=== PATIENT | male | born 1970 | race Asian ===

== ENCOUNTER 2019-10-09 16:22 | Emergency (ER) | payer MEDICAID, MEDICARE ==
[~2019-10-09] VITALS: Ht 175.3 cm; Wt 116.0 kg
[2019-10-09] MEDS ORDERED: SODIUM CHLORIDE 0.9% 1000ML BAG (SEPSIS BOLUS) IV ONE (17:00)
[2019-10-09] MEDS ORDERED: VANCOMYCIN 1 G PREMIX 200 ML IV ONE (17:00)
[2019-10-09] MEDS ORDERED: PIPERACILLIN/TAZ 3.375G PREMIX 50 ML IV ONE (17:00)
[2019-10-09 18:35] LABS: BASOPHILS % 0.3 % (0.0-2.0); EOSINOPHILS % 0.4 % (0.0-5.0); HEMATOCRIT. 44.3 % (42.0-52.0); HEMOGLOBIN. 14.8 g/dL (14.0-18.0); LYMPHOCYTES % 9.9 % (20.0-50.0); MEAN CORPUSCULAR HEMOGLOBIN 31.2 pg (28.0-32.0); MEAN CORPUSCULAR VOLUME 93.5 fL (80.0-94.0); MEAN PLATELET VOLUME 8.4 fl (7.4-10.4); MONOCYTES % 6.6 % (2.0-8.0); NEUTROPHILS % 82.8 % (40.0-76.0); PLATELET 297 x1000/uL (130-400); RED BLOOD CELL COUNT 4.75 mill/uL (4.7-6.1); RED CELL DISTRIBUTION WIDTH 13.9 % (11.6-14.6)
[2019-10-09 18:42] LABS: CHLORIDE 103 mEq/L (98-107); PROTHROMBIN TIME 9.9 sec (9.6-11.0)
[2019-10-09] MEDS ORDERED: KETOROLAC 30MG/ML VIAL IV ONE (20:15)
[2019-10-09] MEDS ORDERED: HYDROCODONE/ACETAMINOPHEN 5/325MG TABLET PO ONE (20:15)
[2019-10-09] MEDS ORDERED: LORAZEPAM 2MG/ML CPJ IV ONE (20:45)
[2019-10-09 21:20] VITALS: BP 148/81
== END 2019-10-10 00:48 | disposition left against medical advice (07) ==
LOC: ER 16:22 → CANBEDREQ 21:00 → ER 10-10 00:48
DX: L03.115 Cellulitis of right lower limb (principal); A41.9 Sepsis, unspecified organism; F17.290 Nicotine dependence, other tobacco product, uncomplicated; F12.10 Cannabis abuse, uncomplicated; Z98.890 Other specified postprocedural states
CPT/HCPCS: 36415; 71045; 80053; 83605; 84145; 84484; 85025; 85610; 87040; 93005; 96365; 96367; 99291; J2543; J3370; J7030

== ENCOUNTER 2022-05-13 15:41 | Inpatient (IN) | payer MEDICAID, MEDICARE ==
[~2022-05-13] VITALS: Ht 190.5 cm; Wt 137.1 kg
[2022-05-13] MEDS ORDERED: SODIUM CHLORIDE 0.9% 1,000 ML IV ONE ×2 (16:00→16:45)
[2022-05-13 16:23] LABS: BASOPHILS % 0.5 % (0.0-2.0); EOSINOPHILS % 0.2 % (0.0-5.0); HEMATOCRIT. 25.5 % (42.0-52.0); HEMOGLOBIN. 8.3 g/dL (14.0-18.0); LYMPHOCYTES % 16.9 % (20.0-50.0); MEAN CORPUSCULAR HEMOGLOBIN 31.9 pg (28.0-32.0); MEAN CORPUSCULAR VOLUME 97.7 fL (80.0-94.0); MEAN PLATELET VOLUME 7.2 fl (7.4-10.4); NEUTROPHILS % 77.4 % (40.0-76.0); PLATELET 937 x1000/uL (130-400); RED BLOOD CELL COUNT 2.61 mill/uL (4.7-6.1); RED CELL DISTRIBUTION WIDTH 16.1 % (11.6-14.6)
[2022-05-13 16:25] LABS: PARTIAL THROMBOPLASTIN TIME < 21.0 sec (23.4-31.0)
[2022-05-13 16:39] LABS: CHLORIDE 101 mEq/L (98-107)
[2022-05-13] MEDS ORDERED: SODIUM CHLORIDE 0.9% 1000ML BAG (SEPSIS BOLUS) IV NR (17:00)
[2022-05-13] MEDS ORDERED: PIPERACILLIN/TAZ 3.375G PREMIX 50 ML IV NR (17:00)
[2022-05-13] MEDS: VANCOMYCIN 1GM PMX (XELLIA) 200 ML IV NR (18:15)
[2022-05-13 18:57] LABS: CLARITY URINE CLEAR (CLEAR); COLOR URINE YELLOW (YELLOW); KETONES URINE NEGATIVE (NEGATIVE); LEUKOCYTE ESTERASE URINE NEGATIVE (NEGATIVE); NITRITE URINE NEGATIVE (NEGATIVE); OCCULT BLOOD URINE NEGATIVE (NEGATIVE); PROTEIN URINE NEGATIVE (NEGATIVE); SPECIFIC GRAVITY URINE 1.021 (1.005-1.030); UROBILINOGEN URINE 0.2 E.U./dL (0.2-1.0)
[2022-05-13] MEDS ORDERED: IOHEXOL-300 100 ML BOTTLE ONE (18:57)
[2022-05-13 19:12] LABS: ETHANOL BLOOD < 10 mg/dL
[2022-05-13 19:39] LABS: *AMPHETAMINES SCREEN URINE NEGATIVE (NEGATIVE); *BARBITURATES SCREEN URINE NEGATIVE (NEGATIVE); *BENZODIAZEPINES SCREEN URINE NEGATIVE (NEGATIVE); *COCAINE SCREEN URINE NEGATIVE (NEGATIVE); CANNABINOID URINE SCREEN NEGATIVE (NEGATIVE); METHADONE URINE SCREEN NEGATIVE (NEGATIVE); OPIATES URINE SCREEN NEGATIVE (NEGATIVE); PHENCYCLIDINE URINE SCREEN NEGATIVE (NEGATIVE)
[2022-05-13 23:09] VITALS: BP 93/67
[2022-05-14] VITALS (20 sets, daily range): BP systolic 93–152; BP diastolic 64–85
[2022-05-14] MEDS ORDERED: MORPHINE SULFATE 2 MG/ML CPJ (NOT FOR IM USE) IV PRN (02:45)
[2022-05-14] MEDS ORDERED: VANCOMYCIN 1GM PMX (XELLIA) 200 ML IV SCH (03:30)
[2022-05-14] MEDS: DEXT 5%/0.45% NACL 1000ML 1,000 ML IV SCH ×2 (03:32→22:45)
[2022-05-14] MEDS ORDERED: DOXY100T2 PO (05:49)
[2022-05-14] MEDS ORDERED: ACET-2708 PO (05:49)
[2022-05-14] MEDS ORDERED: CEPH500T PO (05:49)
[2022-05-14] MEDS ORDERED: PIPERACILLIN/TAZOBACTAM 3.375GM/50ML PREMIX IV SCH (06:00)
[2022-05-14] MEDS ORDERED: *PATIENT'S OWN MEDICATION STORAGE XX SCH (06:00)
[2022-05-14 06:57] LABS: BASOPHILS % 0.7 % (0.0-2.0); EOSINOPHILS % 0.1 % (0.0-5.0); LYMPHOCYTES % 13.9 % (20.0-50.0); MEAN CORPUSCULAR HEMOGLOBIN 32.3 pg (28.0-32.0); MEAN CORPUSCULAR VOLUME 96.8 fL (80.0-94.0); MEAN PLATELET VOLUME 7.2 fl (7.4-10.4); MONOCYTES % 7.1 % (2.0-8.0); NEUTROPHILS % 78.2 % (40.0-76.0); PLATELET 613 x1000/uL (130-400); RED BLOOD CELL COUNT 1.93 mill/uL (4.7-6.1); RED CELL DISTRIBUTION WIDTH 15.9 % (11.6-14.6)
[2022-05-14] MEDS: PIPERACILLIN/TAZOBACTAM 3.375G in DEXT 5% WATER 50ML IV SCH ×3 (06:57→21:19)
[2022-05-14 07:19] LABS: CHLORIDE 112 mEq/L (98-107)
[2022-05-14 07:54] LABS: HEMATOCRIT. 18.7 % (42.0-52.0); HEMOGLOBIN. 6.2 g/dL (14.0-18.0)
[2022-05-14] MEDS ORDERED: ENOXAPARIN 40MG/0.4ML SYR SUBCUT SCH (09:00)
[2022-05-14] MEDS ORDERED: PANTOPRAZOLE SODIUM 40 MG/VIAL IV SCH (09:00)
[2022-05-14] MEDS ORDERED: NALOXONE HCL 0.4MG/ML VIAL IV PRN (10:00)
[2022-05-14] MEDS: VANCOMYCIN 1250MG in DEXTROSE 5% WATER 250ML IV SCH ×2 (16:17→22:00)
[2022-05-14 16:31] LABS: TOTAL IRON BINDING CAPACITY 248 ug/dL (250-450)
[2022-05-14 17:30] LABS: HEMATOCRIT 20.9 % (42.0-52.0); HEMOGLOBIN 6.8 g/dL (14.0-18.0)
[2022-05-14] MEDS: PANTOPRAZOLE SODIUM 40 MG/VIAL IV SCH (21:19)
[2022-05-14] MEDS: VANCOMYCIN 1GM PMX (XELLIA) 200 ML IV NR (21:20)
[2022-05-15] VITALS (16 sets, daily range): BP systolic 99–155; BP diastolic 44–84
[2022-05-15 02:09] LABS: HEMATOCRIT 22.2 % (42.0-52.0); HEMOGLOBIN 7.4 g/dL (14.0-18.0)
[2022-05-15] MEDS: PIPERACILLIN/TAZOBACTAM 3.375G in DEXT 5% WATER 50ML IV SCH ×3 (05:52→21:41)
[2022-05-15] MEDS: VANCOMYCIN 1250MG in DEXTROSE 5% WATER 250ML IV SCH ×3 (05:59→21:41)
[2022-05-15 07:17] LABS: BASOPHILS % 0.5 % (0.0-2.0); EOSINOPHILS % 0.3 % (0.0-5.0); LYMPHOCYTES % 11.7 % (20.0-50.0); MEAN CORPUSCULAR HEMOGLOBIN 31.7 pg (28.0-32.0); MEAN CORPUSCULAR VOLUME 94.1 fL (80.0-94.0); MONOCYTES % 6.6 % (2.0-8.0); NEUTROPHILS % 80.9 % (40.0-76.0); PLATELET 496 x1000/uL (130-400); RED BLOOD CELL COUNT 2.14 mill/uL (4.7-6.1); RED CELL DISTRIBUTION WIDTH 15.5 % (11.6-14.6)
[2022-05-15 07:55] LABS: CHLORIDE 109 mEq/L (98-107); VANCOMYCIN TROUGH 26.1 ug/mL (5.0-10.0)
[2022-05-15 08:08] LABS: HEMOGLOBIN. 6.8 g/dL (14.0-18.0)
[2022-05-15 08:09] LABS: HEMATOCRIT. 20.1 % (42.0-52.0)
[2022-05-15] MEDS: PANTOPRAZOLE SODIUM 40 MG/VIAL IV SCH ×2 (08:52→21:41)
[2022-05-15] MEDS: DEXT 5%/0.45% NACL 1000ML 1,000 ML IV SCH ×2 (08:53→18:01)
[2022-05-15 17:14] LABS: HEMATOCRIT 22.1 % (42.0-52.0); HEMOGLOBIN 7.4 g/dL (14.0-18.0)
[2022-05-15] MEDS: FERROUS SULFATE 325MG TABLET PO SCH (17:15)
[2022-05-15] MEDS: ASCORBIC ACID 500 MG TABLET PO SCH (17:15)
[2022-05-15 21:02] LABS: HEMATOCRIT 23.7 % (42.0-52.0); HEMOGLOBIN 7.8 g/dL (14.0-18.0)
[2022-05-16] VITALS (16 sets, daily range): BP systolic 110–164; BP diastolic 52–106
[2022-05-16 00:05] LABS: HEMATOCRIT 21.9 % (42.0-52.0); HEMOGLOBIN 7.4 g/dL (14.0-18.0)
[2022-05-16] MEDS: DEXT 5%/0.45% NACL 1000ML 1,000 ML IV SCH ×2 (04:25→16:08)
[2022-05-16] MEDS: VANCOMYCIN 1250MG in DEXTROSE 5% WATER 250ML IV SCH ×3 (04:27→22:26)
[2022-05-16] MEDS: PIPERACILLIN/TAZOBACTAM 3.375G in DEXT 5% WATER 50ML IV SCH ×3 (05:12→22:28)
[2022-05-16 09:04] LABS: BASOPHILS % 0.5 % (0.0-2.0); EOSINOPHILS % 0.5 % (0.0-5.0); HEMATOCRIT. 24.8 % (42.0-52.0); HEMOGLOBIN. 8.3 g/dL (14.0-18.0); LYMPHOCYTES % 11.9 % (20.0-50.0); MEAN CORPUSCULAR HEMOGLOBIN 31.7 pg (28.0-32.0); MEAN CORPUSCULAR VOLUME 94.1 fL (80.0-94.0); MEAN PLATELET VOLUME 6.8 fl (7.4-10.4); MONOCYTES % 6.6 % (2.0-8.0); NEUTROPHILS % 80.5 % (40.0-76.0); PLATELET 427 x1000/uL (130-400); RED BLOOD CELL COUNT 2.63 mill/uL (4.7-6.1); RED CELL DISTRIBUTION WIDTH 15.9 % (11.6-14.6)
[2022-05-16 09:13] LABS: INR 1.1; PROTHROMBIN TIME 11.4 sec (9.6-11.0)
[2022-05-16 09:14] LABS: CHLORIDE 102 mEq/L (98-107)
[2022-05-16] MEDS: FERROUS SULFATE 325MG TABLET PO SCH ×2 (09:17→17:33)
[2022-05-16] MEDS: ASCORBIC ACID 500 MG TABLET PO SCH ×2 (09:17→17:33)
[2022-05-16] MEDS: PANTOPRAZOLE SODIUM 40 MG/VIAL IV SCH ×2 (09:19→20:43)
[2022-05-16 13:02] LABS: HEMATOCRIT 25.1 % (42.0-52.0); HEMOGLOBIN 8.6 g/dL (14.0-18.0)
[2022-05-16] MEDS ORDERED: PROPOFOL 200MG/20ML VIAL IV ONE (13:53)
[2022-05-16] MEDS ORDERED: LIDOCAINE HCL 1% 50ML VIAL (10MG/ML) ONE (13:53)
[2022-05-16] MEDS ORDERED: LABETALOL 5MG/ML SYR 20 MG/4 ML SYRINGE IV PRN (14:30)
[2022-05-16] MEDS ORDERED: MEPERIDINE HCL/PF 25MG/ML CPJ IV PRN (14:30)
[2022-05-16] MEDS ORDERED: HYDROMORPHONE HCL/PF 2MG/ML CPJ IV PRN (14:30)
[2022-05-16] MEDS ORDERED: ONDANSETRON HCL 4MG/2ML INJ IV PRN (14:30)
[2022-05-16] MEDS: SUCRALFATE 1 G/10 ML UDC PO SCH ×2 (17:33→20:43)
[2022-05-16 20:37] LABS: HEPATITIS B SURFACE ANTIGEN NEGATIVE
[2022-05-17] VITALS: BP 127/73
[2022-05-17 02:00] VITALS: BP 129/70
[2022-05-17 04:00] VITALS: BP 114/56
[2022-05-17] MEDS: PIPERACILLIN/TAZOBACTAM 3.375G in DEXT 5% WATER 50ML IV SCH (05:41)
[2022-05-17] MEDS: VANCOMYCIN 1250MG in DEXTROSE 5% WATER 250ML IV SCH ×2 (05:41→13:06)
[2022-05-17 06:00] VITALS: BP 121/68
[2022-05-17 06:26] LABS: BASOPHILS % 0.4 % (0.0-2.0); EOSINOPHILS % 0.6 % (0.0-5.0); HEMATOCRIT. 27.8 % (42.0-52.0); HEMOGLOBIN. 9.2 g/dL (14.0-18.0); MEAN CORPUSCULAR HEMOGLOBIN 31.3 pg (28.0-32.0); MEAN CORPUSCULAR VOLUME 94.6 fL (80.0-94.0); MEAN PLATELET VOLUME 7.3 fl (7.4-10.4); MONOCYTES % 9.2 % (2.0-8.0); NEUTROPHILS % 76.8 % (40.0-76.0); PLATELET 411 x1000/uL (130-400); RED BLOOD CELL COUNT 2.94 mill/uL (4.7-6.1); RED CELL DISTRIBUTION WIDTH 15.9 % (11.6-14.6)
[2022-05-17 06:43] LABS: CHLORIDE 103 mEq/L (98-107)
[2022-05-17] MEDS: FERROUS SULFATE 325MG TABLET PO SCH (08:42)
[2022-05-17] MEDS: SUCRALFATE 1 G/10 ML UDC PO SCH ×2 (08:42→12:42)
[2022-05-17] MEDS: PANTOPRAZOLE SODIUM 40 MG/VIAL IV SCH (08:42)
[2022-05-17] MEDS: ASCORBIC ACID 500 MG TABLET PO SCH (08:43)
[2022-05-17] MEDS: DEXT 5%/0.45% NACL 1000ML 1,000 ML IV SCH (10:20)
[2022-05-17] MEDS ORDERED: OMEP40CA20 MT (10:51)
[2022-05-17] MEDS ORDERED: SUCR1TAB30 MT (10:51)
[2022-05-17 14:10] VITALS: BP 139/86
== END 2022-05-17 18:07 | disposition home or self-care (01) | DRG 721 ==
LOC: ER 15:41 → 5EST 20:52 → ENRESERV 21:28
PROVIDERS: ADMIT Internal Medicine; ATTEND Internal Medicine
PROC: 30233N1 Transfusion of Nonautologous Red Blood Cells into Peripheral Vein, Percutaneous Approach (ICD-10-PCS; principal; 2022-05-16)
PROC: 0DB78ZX Excision of Stomach, Pylorus, Via Natural or Artificial Opening Endoscopic, Diagnostic (ICD-10-PCS; 2022-05-16)
DX: T81.43XA Infection following a procedure, organ and space surgical site, initial encounter (principal); R65.20 Severe sepsis without septic shock; E87.2 Acidosis; K20.91 Esophagitis, unspecified with bleeding; K29.61 Other gastritis with bleeding; A41.9 Sepsis, unspecified organism; D62 Acute posthemorrhagic anemia; I95.9 Hypotension, unspecified; K76.0 Fatty (change of) liver, not elsewhere classified; K81.9 Cholecystitis, unspecified; L02.214 Cutaneous abscess of groin; I25.10 Atherosclerotic heart disease of native coronary artery without angina pectoris; Z20.822 Contact with and (suspected) exposure to COVID-19; K44.9 Diaphragmatic hernia without obstruction or gangrene; N20.0 Calculus of kidney; N50.1 Vascular disorders of male genital organs; R16.0 Hepatomegaly, not elsewhere classified; R74.01 Elevation of levels of liver transaminase levels; Z72.89 Other problems related to lifestyle; N49.2 Inflammatory disorders of scrotum
CPT/HCPCS: 36415; 71045; 74177; 76700; 76857; 76870; 80048; 80053; 80076; 80202; 80305; 80320; 81003; 82270; 82607; 82728; 82746; 83540; 83550; 83605; 84145; 85014; 85018; 85025; 85044; 86705; 86709; 86803; 86850; 86870; 86900; 86920; 87070; 87077; 87186; 87340; 87426; 88305; 88312; 88313; 93005; 93976; 99291; C9113; J2543; J2704; J3370; J3490; J7030; J7060; P9016; Q9967; G0480

== ENCOUNTER 2024-11-03 08:04 | Emergency (ER) | payer MEDICAID ==
[~2024-11-03] VITALS: Ht 190.5 cm; Wt 140.0 kg
[~2024-11-03 08:04] MED LIST: ACET-2708 PO; OMEP40CA20 MT; SUCR1TAB30 MT
[2024-11-03 08:07] VITALS: O2SAT 99
[2024-11-03] MEDS: DEXAMETHASONE 10 MG/ML VIAL PO ONE (08:32)
[2024-11-03] MEDS ORDERED: P50 MT (08:52)
[2024-11-03] MEDS ORDERED: ALBU18HF2 IH (08:52)
[2024-11-03] MEDS ORDERED: GUAI-450 MT (08:52)
[2024-11-03 09:16] VITALS: BP 148/94; PULSE 86; RESP 18; TEMP 36.78072; O2SAT 97
== END 2024-11-03 09:17 | disposition home or self-care (01) ==
LOC: ER 08:04
DX: J20.8 Acute bronchitis due to other specified organisms (principal); Z79.899 Other long term (current) drug therapy; Z98.890 Other specified postprocedural states
CPT/HCPCS: 99283; 71045; J1100